=== PATIENT | male | born 1960 | race Caucasian/White ===

== ENCOUNTER → 2016-09-03 | Outpatient (CLI) | payer BC ==
--- NOTE | 2016-09-03 16:12 | CT ---
EXAM: Head CLINICAL INDICATION: 56-year-old male with headache. COMPARISON: None. TECHNIQUE: CT brain without contrast. FINDINGS: Minimal foci of patchy hypoattenuation are present in a subcortical and periventricular deep white matter distribution, nonspecific; however, most likely represent small vessel ischemic disease, age indeterminate. The ventricles, sulci, and cisterns are symmetric and unremarkable. The reza-white matter differentiation is preserved. There is no mass effect, midline shift, intra- or extra-axial fluid collection/acute hemorrhage. The osseous structures are unremarkable. The paranasal sinuses and mastoid air cells are clear. IMPRESSION: 1. No acute intracranial abnormalities. Nonspecific, minimal white matter change most likely small vessel ischemic disease, age indeterminate. 2. CT is insensitive for early evaluation of acute stroke. If there is clinical concern for acute ischemia, an MRI may be considered. Electronically signed by: Pallavi Ford MD 09/03/2016 4:11 PM [employer]
== END | disposition home or self-care (01) ==
LOC: CT 13:20
PROVIDERS: ATTEND General Practice
DX: R51 Headache (principal)

== ENCOUNTER → 2018-06-29 | Outpatient (CLI) | payer BC ==
--- NOTE | 2018-06-29 16:36 | CT ---
EXAM DESCRIPTION: Chest w/Contrast CLINICAL HISTORY: 58 years, Male, PULMONARY EMBOLISM COMPARISON: None TECHNIQUE: Thin-section noncontrast axial CT images are obtained according to our protocol. Reconstructed MPR images are created and reviewed as well. FINDINGS: Small filling defects are seen in bilateral lower lobe pulmonary arterial branches, left more than right. Findings are consistent with scattered small pulmonary emboli. No large central embolus is seen. No upper lobe emboli are identified. These are small in number and involve a small percentage of the pulmonary arterial tree. Findings would suggest that these are acute or subacute. Lungs: No consolidating pulmonary infiltrate or groundglass infiltrate. No worrisome pulmonary mass or nodule. Calcified granuloma in the right middle lobe with additional calcified granulomas in the anterior segment left upper lobe. These range in size from 4 to 7 mm. Mediastinum: Lymph nodes are normal in size. Normal vascular contours. Heart size is normal with no pericardial effusion. Chest wall/axilla: No mass or adenopathy. Lower neck/supraclavicular: No mass or adenopathy. Upper abdomen: Unremarkable upper abdominal viscera. Coronal and sagittal reformatted images confirm the findings. Small emboli are seen in lower lobe pulmonary arteries left more than right. Two prominent hilar lymph nodes are partially calcified. Prominent mediastinal nodes are also noted in the AP window and subcarinal region thought to be reactive. IMPRESSION: Few scattered, small pulmonary emboli in the bilateral lower lobe pulmonary arterial branches. See above. This exam was performed according to our departmental dose-optimization program, which includes automated exposure control, adjustment of the mA and/or kV according to patient size and/or use of iterative reconstruction technique. Total DLP equals 964.52 mGycm. Electronically signed by: Rafi Howell MD 06/29/2018 4:35 PM [facility]
== END ==
LOC: CT 12:59
PROVIDERS: ATTEND General Practice
DX: I26.99 Other pulmonary embolism without acute cor pulmonale (principal)